=== PATIENT | female | born 1950 | race Caucasian/White ===

== ENCOUNTER 2019-03-30 06:33 | Inpatient (IN) ==
--- NOTE | 2019-02-24 16:47 | PAT Medication Instructions ---
Medication Instructions Date of Service February 24, 2019 Home Medications fluticasone propionate [Flonase Allergy Relief] 2 spray INTRANASAL QAM loratadine 10 mg PO QAM sertraline [Zoloft] 25 mg PO HS sertraline [Zoloft] 100 mg PO HS verapamil 120 mg PO QAM DO NOT take the morning of surgery loratadine 10 mg PO QAM Take morning of surgery With a small sip of water, OTHERWISE NOTHING TO EAT OR DRINK AFTER MIDNIGHT: fluticasone propionate [Flonase Allergy Relief] 2 spray INTRANASAL QAM verapamil 120 mg PO QAM Take evening before surgery sertraline [Zoloft] 25 mg PO HS sertraline [Zoloft] 100 mg PO HS Other Notes If you have any questions please call us at [phone] or [phone] or [phone] or [phone]
--- NOTE | 2019-02-25 12:43 | Anesthesiology Consultation ---
Date of Service February 25, 2019 Assessment & Plan (1) Encounter for pre-operative examination: Chart Review Chart Review: Pending: Refer to Additional Notes / Consult section (awaiting PAT testing) History Surgery Operation Date: 03/30/19 08:20 Proposed Procedures p Right Total Knee Arthroplasty - Romulo Oseguera DO Height/Weight Height: 5 ft 4 in Weight: 74 kg Allergies Allergy/AdvReac Type Severity Reaction Status Date / Time erythromycin base AdvReac Unknown GI UPSETS Verified 02/21/19 13:26 Medications Home Medications Medication Instructions Recorded Confirmed Last Taken fluticasone propionate [Flonase 2 spray INTRANASAL QA 02/21/19 02/21/19 Unknown Allergy Relief] loratadine 10 mg PO QAM 02/21/19 02/21/19 Unknown sertraline [Zoloft] 25 mg PO HS 02/21/19 02/21/19 Unknown sertraline [Zoloft] 100 mg PO HS 02/21/19 02/21/19 Unknown verapamil 120 mg PO QAM 02/21/19 02/21/19 Unknown Past Medical History Medical History Depression Environmental allergies Heart palpitations Osteoarthritis Sleep apnea Unobtainable family history due to adoption Exercise / Class Metabolic Activity II 4-5 Yardwork/Stairs/Walk up hill Past Surgical History Surgical History History of ERCP History of arthroplasty of left shoulder History of arthroplasty of right shoulder History of carpal tunnel surgery of left wrist History of carpal tunnel surgery of right wrist History of surgical removal of ganglion cyst Hx of LASIK Hx of section X2 Hx of cholecystectomy Hx of colonoscopy Hx of meniscectomy of right knee Hx of tubal ligation Social History Smoking Status: Never smoker Do You Dip or Chew Tobacco: No Hx Alcohol Use: Yes Alcohol type: beer, wine and hard liquor alcohol intake frequency: a few times a week Hx Substance Use: No Physical Exam Vital Signs Last Vital Signs Temp 97.8 F 02/25/19 12:33 Pulse 75 02/25/19 12:33 Resp 18 02/25/19 12:33 BP 115/73 02/25/19 12:33 Pulse Ox 97 02/25/19 12:33 ENMT Mouth: + dental restorations Thyromental Distance: > or= 3.5 Finger Breadths Mallampati Class: II Neck normal visual inspection Respiratory normal respiratory effort Auscultation: lungs clear to auscultation bilaterally Cardiovascular Rate/Rhythm: regular rate and regular rhythm
[2019-02-25 13:18] LABS: Basophils # (auto) 0.03 K/uL (0-0.2); Basophils % (auto) 0.5 %; Eosinophils # (auto) 0.22 K/uL (0-0.5); Eosinophils % (auto) 3.5 %; Hemoglobin 13.5 g/dL (12.0-16.0); Immature Granulocytes # (auto) 0.01 K/uL (0.00-0.02); Immature Granulocytes % (auto) 0.2 %; Lymphocytes # (auto) 1.82 K/uL (1.2-3.4); Lymphocytes % (auto) 28.8 %; Mean Corpuscular Hemoglobin 34.5 pg (25-34); Mean Corpuscular Hgb Conc 35.5 g/dL (32-36); Mean Corpuscular Volume 97.2 fL (80-100); Mean Platelet Volume 10.2 fL (7.4-10.4); Monocytes # (auto) 0.36 K/uL (0.11-0.59); Monocytes % (auto) 5.7 %; Neutrophils # (auto) 3.89 K/uL (1.4-6.5); Neutrophils % (auto) 61.3 %; Platelet Count 190 K/uL (130-400); RDW Coefficient of Variation 12.3 % (11.5-14.5); RDW Standard Deviation 43.4 fL (36.4-46.3); Red Blood Count 3.91 M/uL (4.2-5.4); White Blood Count 6.33 K/uL (4.8-10.8)
--- NOTE | 2019-02-25 13:22 | XRay Report ---
XR chest Pre-admission PA/Lat CLINICAL HISTORY: PAT preoperative evaluation COMPARISON STUDY: No previous studies for comparison. FINDINGS: The bones soft tissues and hemidiaphragms are normal. The cardiomediastinal silhouette is n ormal. The lungs are clear. The pulmonary vasculature is normal. IMPRESSION: Negative chest. The above report was generated using voice recognition software. It may contain grammatical, syntax or spelling errors. Electronically signed by: Jerad Francis M.D. 02/25/2019 1:21 PM
[2019-02-25 13:24] LABS: Appearance Urine Cloudy (Clear); Bacteria Urine Automated Negative (Negative); Bilirubin Urine Negative (Negative); Blood Urine Negative (Negative); Color Urine Yellow; Glucose Urine UA Negative (Negative); Ketones Urine Negative (Negative); Leukocyte Esterase Urine Negative (Negative); Nitrite Urine Negative (Negative); Protein Urine Negative (Negative); RBC Urine Automated 0-4 /hpf (0-4); Specific Gravity Urine 1.021 (1.000-1.030); Urobilinogen Urine Negative (Negative); pH Urine 7.5 (4.5-7.5)
[2019-02-25 13:29] LABS: Albumin Level 3.9 gm/dl (3.4-5.0); BUN Creatinine Ratio 29.3 (10-20); Calcium 8.6 mg/dl (8.5-10.1); Creatinine Clr Calc Pharmacy 56.8 ml/min; Est GFR (African American) 71.4; Est GFR (Non-African American) 61.6; Partial Thromboplastin Ratio 0.9; Partial Thromboplastin Time 23.8 Seconds (21.0-31.0); Potassium 4.2 mmol/L (3.5-5.1); Prothrombin Time 10.3 Seconds (9.0-12.0)
[2019-02-25 13:58] LABS: Estimated Average Glucose 100 mg/dl; Hemoglobin A1C 5.1 % (4.5-5.6)
--- NOTE | 2019-03-02 19:38 | History & Physical Report ---
Date of Service March 02, 2019 Date of Surgery: 03/30/19 Assessment & Plan (1) Osteoarthritis of right knee: Further care discussed with patient and at this point in time has failed conservative measures and would like to proceed with a Right total knee replacement. Plan on discharge will be home with home health physical therapy. DVT prophalaxis with TEDs, SCDs and will also place on aspirin 81 mg p.o. b.i.d. for a month postop. Patient will have follow up appointment in our office two weeks post op for staple/suture removal and re-evaluation. Patient otherwise has no other questions or concerns. History of Present Illness Chief Complaint: Right knee pain Primary Care Provider: Manny Chou is a 68 year old female who complains of right knee pain, presents for pre-op evaluation prior to a Right total knee replacement by dr Oseguera at [facility]. She complains of pain, crepitus, decreased range of motion, instability and stiffness in the right knee. she states that the symptoms have been chronic and non-traumatic. Effie states that the symptoms occur constantly and have gradually been worsening. Currently the patient states that the symptoms are moderate-severe. The pain is described as aching, sharp and throbbing. The symptoms occur continuously. The symptoms are aggravated by ascending stairs, daily activities, first steps while awake walking. Prior NSAIDs include Ibuprofen and Mobic. She has been treated with previous viscosupplementation and cortisone injections in the past without much relief. Allergies Allergy/AdvReac Type Severity Reaction Status Date / Time erythromycin base AdvReac Unknown GI UPSETS Verified 02/21/19 13:26 Home Medications Home Medications Medication Instructions Recorded Confirmed Type fluticasone propionate [Flonase 2 spray INTRANASAL QA 02/21/19 02/21/19 History Allergy Relief] loratadine 10 mg PO QAM 02/21/19 02/21/19 History sertraline [Zoloft] 25 mg PO HS 02/21/19 02/21/19 History sertraline [Zoloft] 100 mg PO HS 02/21/19 02/21/19 History verapamil 120 mg PO QAM 02/21/19 02/21/19 History Past Med/Surg History Medical History Depression Environmental allergies Heart palpitations Osteoarthritis Sleep apnea Unobtainable family history due to adoption Surgical History History of ERCP History of arthroplasty of left shoulder History of arthroplasty of right shoulder History of carpal tunnel surgery of left wrist History of carpal tunnel surgery of right wrist History of surgical removal of ganglion cyst Hx of LASIK Hx of section X2 Hx of cholecystectomy Hx of colonoscopy Hx of meniscectomy of right knee Hx of tubal ligation Social History Preferred Language: Mosotho Communication Ability: Effective Beliefs That Will Affect Care: None Current Living Situation: Alone Feels Safe at Home: Yes Smoking Status: Never smoker Do You Dip or Chew Tobacco: No ; Second Hand Exposure: No ; Hx Alcohol Use: Yes Alcohol type: beer, wine and hard liquor Hx Substance Use: No Review of Systems Review of Systems: All systems reviewed & are unremarkable except as noted in HPI & below Constitutional: no fever, no chills and no sweats Respiratory: no cough and no dyspnea Cardiovascular: no chest pain, no dyspnea and no orthopnea Gastrointestinal: no abdominal pain, no nausea and no vomiting Musculoskeletal: as per Subjective / HPI Physical Exam Physical Exam: Ht: 5ft 4 in Wt: 74kg BP: 122/72 Pulse: 70 Constitutional: WD/WN, vitals as above no acute distress Respiratory: normal respiratory effort, lungs clear to auscultation no respiratory distress, no labored breathing and does not use accessory muscles Cardiovascular: RRR, no murmur, no edema Gastrointestinal (Abdomen): normal bowel sounds, soft, nontender, no hepatosplenomegaly Musculoskeletal: Knee: + knee abnormal to inspection (Right knee: ), + effusion (+1 effusion), + surgical incision (well healed portals), + limited ROM of knee (ROM 0/3/110), + knee ROM with crepitation, + joint line tenderness (medial joint line) and + Leilani's sign positive; no deformity, no skin erythema, no ecchymosis, no valgus laxity, no varus laxity, anterior drawer test negative, Miranda's sign negative and pivot shift test negative Results & Data Laboratory Results Laboratory Results WBC 6.33 K/uL (4.8-10.8) 02/25/19 12:49 RBC 3.91 M/uL (4.2-5.4) L 02/25/19 12:49 Hgb 13.5 g/dL (12.0-16.0) 02/25/19 12:49 Hct 38.0 % (37-47) 02/25/19 12:49 MCV 97.2 fL (80-100) 02/25/19 12:49 MCH 34.5 pg (25-34) H 02/25/19 12:49 MCHC 35.5 g/dL (32-36) 02/25/19 12:49 RDW Std Deviation 43.4 fL (36.4-46.3) 02/25/19 12:49 RDW Coeff of Tereso 12.3 % (11.5-14.5) 02/25/19 12:49 Plt Count 190 K/uL (130-400) 02/25/19 12:49 MPV 10.2 fL (7.4-10.4) 02/25/19 12:49 Immature Gran % (Auto) 0.2 % 02/25/19 12:49 Neut % (Auto) 61.3 % 02/25/19 12:49 Lymph % (Auto) 28.8 % 02/25/19 12:49 [place] % (Auto) 5.7 % 02/25/19 12:49 Eos % (Auto) 3.5 % 02/25/19 12:49 Baso % (Auto) 0.5 % 02/25/19 12:49 Immature Gran # (Auto) 0.01 K/uL (0.00-0.02) 02/25/19 12:49 Neut # (Auto) 3.89 K/uL (1.4-6.5) 02/25/19 12:49 Lymph # (Auto) 1.82 K/uL (1.2-3.4) 02/25/19 12:49 [place] # (Auto) 0.36 K/uL (0.11-0.59) 02/25/19 12:49 Eos # (Auto) 0.22 K/uL (0-0.5) 02/25/19 12:49 Baso # (Auto) 0.03 K/uL (0-0.2) 02/25/19 12:49 PT 10.3 Seconds (9.0-12.0) 02/25/19 12:49 INR 1.0 (0.9-1.1) 02/25/19 12:49 APTT 23.8 Seconds (21.0-31.0) 02/25/19 12:49 PTT Ratio 0.9 02/25/19 12:49 Sodium 140 mmol/L (136-145) 02/25/19 12:49 Potassium 4.2 mmol/L (3.5-5.1) 02/25/19 12:49 Chloride 108 mmol/L (98-107) H 02/25/19 12:49 Carbon Dioxide 24 mmol/L (21-32) 02/25/19 12:49 Anion Gap 8.0 (3-11) 02/25/19 12:49 BUN 28 mg/dl (7-18) H 02/25/19 12:49 Creatinine 0.96 mg/dl (0.6-1.2) 02/25/19 12:49 Est Cr Clr Drug Dosing 56.8 ml/min 02/25/19 12:49 Est GFR ( Amer) 71.4 02/25/19 12:49 Est GFR (Non-Af Amer) 61.6 02/25/19 12:49 BUN/Creatinine Ratio 29.3 (10-20) H 02/25/19 12:49 Glucose 123 mg/dl (70-99) H 02/25/19 12:49 Estimat Average Glucose 100 mg/dl 02/25/19 12:49 Hemoglobin A1c 5.1 % (4.5-5.6) 02/25/19 12:49 Calcium 8.6 mg/dl (8.5-10.1) 02/25/19 12:49 Albumin 3.9 gm/dl (3.4-5.0) 02/25/19 12:49 Urine Color Yellow 02/25/19 Unknown Urine Appearance Cloudy (Clear) A 02/25/19 Unknown Urine pH 7.5 (4.5-7.5) 02/25/19 Unknown Ur Specific [place] 1.021 (1.000-1.030) 02/25/19 Unknown Urine Protein Negative (Negative) 02/25/19 Unknown Urine Glucose (UA) Negative (Negative) 02/25/19 Unknown Urine Ketones Negative (Negative) 02/25/19 Unknown Urine Blood Negative (Negative) 02/25/19 Unknown Urine Nitrite Negative (Negative) 02/25/19 Unknown Urine Bilirubin Negative (Negative) 02/25/19 Unknown Urine Urobilinogen Negative (Negative) 02/25/19 Unknown Ur Leukocyte Esterase Negative (Negative) 02/25/19 Unknown Urine WBC (Auto) 1-5 /hpf (0-5) 02/25/19 Unknown Urine RBC (Auto) 0-4 /hpf (0-4) 02/25/19 Unknown U Hyaline Cast (Auto) 1-5 /lpf (0-5) 02/25/19 Unknown U Epithel Cells (Auto) 10-20 /lpf (0-5) H 02/25/19 Unknown Urine Bacteria (Auto) Negative (Negative) 02/25/19 Unknown Blood Type A Positive 02/25/19 12:49 Antibody Screen NEGATIVE 02/25/19 12:49 Diagnostic Findings right knee xray from 06/25/18 showing complete loss joint space medial compartment with overall varus alignment, there is also narrowing of the lateral compartment and patellofemoral joint. there is osteophyte formation, subchondral sclerosis noted, no loose bodies, no acute bony pathology. overall impression tricompartmental degenerative changes to the right knee.
[~2019-03-30 06:33] MED LIST: ACETAMINOPHEN 500 MG TAB PO SCH; CEFAZOLIN 1000MG 1,000 MG/7.5 ML SYR IV SCH; CeleBREX 200 MG CAP PO SCH; GABAPENTIN 300 MG CAP PO SCH; LR 500ML BOLUS, THEN 15ML/HR IV SCH; ROPIVACAINE 0.5% HCL/PF 150 MG, BUPIVACAINE 0.5% MPF 30 ML, EPINEPHrine 30MG/30ML (OR U... INSTIL SCH; TRANEXAMIC ACID 1,000 MG **IV Intra-op IV SCH; TRANEXAMIC ACID 1,000 MG **IV Pre-op IV SCH; dexAMETHasone 4 MG TAB PO SCH
[2019-03-30] MEDS ORDERED: BUPIVACAINE 0.5 % 5 MG/1 ML PF 10ML VIAL ONE (06:39)
[2019-03-30] MEDS ORDERED: ROPIVACAINE 0.5% 5 MG/ML 30 ML VIAL ONE (06:39)
[2019-03-30] MEDS ORDERED: EPINEPHrine INJ 1 MG/ML AMP ONE (06:40)
[2019-03-30] MEDS ORDERED: fentaNYL citrate 100 MCG/2 ML VIAL ONE (07:52)
[2019-03-30] MEDS ORDERED: MIDAZOLAM HCL 1 MG/ML 2ML VIAL ONE (07:52)
[2019-03-30] MEDS ORDERED: ORTHO JOINT ANESTHETIC ONE (08:29)
[2019-03-30] MEDS ORDERED: BACITRACIN INJ 50,000 UNIT VIAL ONE (08:29)
--- NOTE | 2019-03-30 09:52 | History & Physical Bridge Note ---
Date of Service March 30, 2019 History & Physical Bridge Note I have examined the patient, reviewed the History & Physical and in the interval since the performance of the History & Physical I have noted the following changes of clinical significance: no changes noted
[2019-03-30] MEDS ORDERED: ePHEDrine sulfate 50 MG/ML AMP IV PRN (10:13)
[2019-03-30] MEDS ORDERED: ATROPINE SULFATE 0.1 MG/ML 10ML SYR IV PRN (10:13)
[2019-03-30] MEDS ORDERED: PHENYLEPHRINE HCL 10 MG/ML VIAL ONE (10:19)
[2019-03-30] MEDS ORDERED: PROPOFOL IV EMULSION 10 MG/ML 20 ML VIAL IV ONE ×2 (10:29→10:59)
--- NOTE | 2019-03-30 11:00 | Operative Report ---
Post Operative Report Pre & Post Diagnosis Operation Date: 03/30/19 09:20 Pre-Op Diagnosis: Right Knee Osteoarthritis Post-Op Diagnosis: Right Knee Osteoarthritis I identified the patient and participated in the time-out.: Yes Procedure Operation Date: 03/30/19 09:20 Actual Procedures p Right Total Knee Arthroplasty(Right) utilizing [employer]ph[employer] journey 2 patient matched total knee arthroplasty size 4 femur 3 tibia 11 poly-29 oval patella- Romulo Oseguera DO Surgeon Romulo Oseguera DO Director Of Content And Programming Jerad MARINELLI Estimated Blood Loss 5 Findings Consistent with Post-Op Diagnosis Patient presents with severe end-stage tricompartmental degenerative joint disease varus alignment subchondral cystic changes marginal osteophytes moderate to large effusion no response to conservative management above intraoperative findings were noted as well as eburnated bone on the medial compartment Specimens Bone cartilage Drains Medium bore Hemovac Complications none Disposition Accompanied Patient To Recovery: No Disposition: Recovery Room Indications Patient presents as a 68-year-old white female with severe end-stage DJD right knee no response to conservative management patient is failed attempted corticosteroid injection Visco supplementation relative rest activity modification bracing weight loss and presents with the above intraoperative findings. Description of Procedure After proper notification of the patientAfter proper prepping and draping of the Right lower extremity anterior midline incision was made over the region of the extensor extensor mechanism after meticulous hemostasis was obtained and maintained in subcutaneous tissues a medial parapatellar incision was made The patella was subluxed lateralward the medial lateral gutter were cleaned from any hypertrophic synovitis and scar tissue of the distal femoral block was placed and the distal femoral osteotomy cut was made subsequently the chamfers anterior and posterior osteotomy cuts were made utilizing the 4-in-1 block the tibia was subsequently subluxed anteriorward medial and ateral meniscal remnants were excised in their entirety remnants of the anterior and posterior cruciate ligaments were excised in their entirety excellent exposure of the proximal tibia was obtained the tibial osteotomy guide was placed on the proximal tibial osteotomy cut was made once again the knee was irrigated with copious amounts of sterile saline solution the patella was subsequently everted lateralward thickened scar tissue around the patella was removed the patella was subsequently cut utilizing a freehand technique and was drilled prepared for final preparation and placement of patella socially flexion-extension gaps were checked and the equal and symmetric trials were placed to the appropriate femoral and tibial trials with poly-spacer being placed for equal flexion and extension gaps and full range of motion including extension to 0 and flexion to 140 the trial components after having been taken to recovery range of motion was subsequently removed meticulous hemostasis was obtained and maintained subsequently a knee block injection of joint cocktail including ropivacaine 0.5% 150 mg. Bupivacaine 0.5% epinephrine 1-200,030 mL's toradol 30 mg dexamethasone 4 mg ketamine 10 mg clonidine 100 micrograms normal saline solution 30 mg was infiltrated into the soft tissues of the posterior knee medial lateral gutters and periosteal synovium special attention was paid to protect neurovascular structures at all times subsequently trial components having been removed the knee was irrigated with sterile saline solution. debris was removed the proximal tibia was subsequently prepared and was made ready for the placement of the tibial component tibial component was also cemented and tamped into position the femoral component was subsequently placed and cemented in the position the patellar component was subsequently cemented in position because hemostasis once again obtained and maintained wound having been thoroughly irrigated with debridement and debridement lavage was performed as well as a medial p arapatellar incision closed with #1 Vicryl in interrupted fashion subcutaneous was closed with #2 Vicryl skin was closed with skin clips. PA-C was necessary for prepping and drapping as well as wound closure of deep fascia Sub cutaneous tissue and skin and was necessary for the case. A sterile compressive dressing was placed patient was taken to recovery in stable condition of report dictated by Oumar I attest to the content of the Intraoperative Record and any orders documented therein. Any exceptions are noted below. I attest to the content of the Intraoperative Record and any orders documented therein. Any exceptions are noted below.
--- NOTE | 2019-03-30 12:16 | XRay Report ---
XR knee RT 2V routine CLINICAL HISTORY: Postoperative evaluation. COMPARISON: None FINDINGS: Alignment of the total right knee arthroplasty is anatomic. There is no fracture or unexpe cted radiopaque foreign body. There are surgical drains. IMPRESSION: Expected findings following total right knee arthroplasty. Electronically signed by: Garrick Blanton M.D. 03/30/2019 12:15 PM
--- NOTE | 2019-03-30 12:21 | Anesthesiology Progress Note ---
Date of Service March 30, 2019 Anesthesia Post Procedure Vital Signs Vital Signs: Temp Pulse Pulse Resp BP BP Pulse Ox 03/30/19 12:13 37.5 C 81 20 105/60 95 03/30/19 12:00 77 16 108/54 L 94 03/30/19 11:50 81 17 100/55 L 94 03/30/19 11:40 37.2 C 86 12 102/46 L 92 03/30/19 07:53 36.9 C 75 18 125/73 95 Transfer of Care Handoff Completed per policy Notes Mental Status: alert / awake / arousable Patient Amnestic to Procedure: Yes Nausea / Vomiting: adequately controlled Pain: adequately controlled Airway Patency, RR, SpO2: stable & adequate BP & HR: stable & adequate Hydration State: stable & adequate Neuraxial Anesthesia: was administered and sensory block is resolving Anesthetic Complications: no major complications apparent
[2019-03-30] MEDS ORDERED: SODIUM CHLORIDE 0.9% 1000ML 1,000 ML IV SCH (13:05)
[2019-03-30] MEDS ORDERED: bisacodyL 10 MG SUPP PR PRN (13:05)
[2019-03-30] MEDS ORDERED: NALOXONE HCL 0.4 MG/1 ML VIAL/CARP IV PRN (13:05)
[2019-03-30] MEDS ORDERED: ONDANSETRON INJ 2 MG/ML 2 ML VIAL IV PRN (13:05)
[2019-03-30] MEDS ORDERED: HYDROmorphone INJ 0.5 MG/0.5 ML SYR IV PRN (13:05)
[2019-03-30] MEDS ORDERED: METOCLOPRAMIDE HCL INJ 5 MG/ML 2 ML VIAL IV PRN (13:05)
[2019-03-30] MEDS ORDERED: MAGNESIUM HYDROXIDE SUSP 30 ML UDC PO PRN (13:05)
[2019-03-30] MEDS: ACETAMINOPHEN 500 MG TAB PO SCH ×2 (13:50→20:23)
[2019-03-30] MEDS: KETOROLAC TROMETHAMINE 15 MG/ML VIAL IV SCH ×2 (13:50→20:23)
[2019-03-30] MEDS: CEFAZOLIN 1000MG 1,000 MG/7.5 ML SYR IV SCH (18:08)
[2019-03-30] MEDS: ASPIRIN 81 MG ECTAB PO SCH (20:23)
[2019-03-30] MEDS: DOCUSATE SODIUM 100 MG CAP PO SCH (20:24)
[2019-03-30] MEDS ORDERED: SERTRALINE HCL 100 MG TABLET PO SCH (21:00)
[2019-03-30] MEDS ORDERED: SERTRALINE HCL 50 MG TABLET PO SCH (21:00)
[2019-03-30] MEDS ORDERED: SENNA 8.6 MG TAB PO SCH (21:00)
[2019-03-30] MEDS: OXYCODONE HCL IR 5 MG TAB (IMMEDIATE RELEASE) PO PRN (21:39)
[2019-03-31] MEDS: KETOROLAC TROMETHAMINE 15 MG/ML VIAL IV SCH ×2 (02:55→08:10)
[2019-03-31] MEDS: CEFAZOLIN 1000MG 1,000 MG/7.5 ML SYR IV SCH (02:55)
[2019-03-31 05:23] LABS: Hemoglobin 11.8 g/dL (12.0-16.0); Mean Corpuscular Hgb Conc 35.8 g/dL (32-36); Mean Corpuscular Volume 95.1 fL (80-100); Mean Platelet Volume 9.7 fL (7.4-10.4); Platelet Count 173 K/uL (130-400); RDW Coefficient of Variation 12.2 % (11.5-14.5); RDW Standard Deviation 41.8 fL (36.4-46.3); Red Blood Count 3.47 M/uL (4.2-5.4); White Blood Count 15.24 K/uL (4.8-10.8)
[2019-03-31] MEDS: ACETAMINOPHEN 500 MG TAB PO SCH (05:36)
[2019-03-31 05:57] LABS: Calcium 8.5 mg/dl (8.5-10.1); Creatinine Clr Calc Pharmacy 60.1 ml/min; Est GFR (African American) 77.2; Est GFR (Non-African American) 66.6; Potassium 4.6 mmol/L (3.5-5.1)
[2019-03-31] MEDS: DOCUSATE SODIUM 100 MG CAP PO SCH (08:12)
[2019-03-31] MEDS: ASPIRIN 81 MG ECTAB PO SCH (08:12)
--- NOTE | 2019-03-31 08:34 | Anesthesiology Progress Note ---
Date of Service March 31, 2019 Anesthesia Post Procedure Vital Signs Vital Signs: Temp Pulse Pulse Resp BP Pulse Ox 03/31/19 07:47 36.9 C 104 H 16 117/73 97 03/31/19 03:10 36.8 C 75 16 111/66 97 03/30/19 15:45 36.8 C 88 17 116/60 97 03/30/19 14:44 83 18 95/55 L 96 03/30/19 13:45 89 18 108/71 93 03/30/19 13:20 36.4 C L 74 15 116/64 94 03/30/19 12:50 36.8 C 80 15 98/47 L 98 03/30/19 12:42 37.5 C 77 15 103/55 L 97 03/30/19 12:30 37.5 C 74 18 98/58 L 95 03/30/19 12:20 37.5 C 70 20 95/51 L 94 03/30/19 12:10 37.5 C 81 20 105/60 95 03/30/19 12:00 77 16 108/54 L 94 03/30/19 11:50 81 17 100/55 L 94 03/30/19 11:40 37.2 C 86 12 102/46 L 92 Notes Mental Status: alert / awake / arousable and participated in evaluation Patient Amnestic to Procedure: Yes Nausea / Vomiting: adequately controlled Pain: adequately controlled Airway Patency, RR, SpO2: stable & adequate BP & HR: stable & adequate Hydration State: stable & adequate Neuraxial Anesthesia: was administered and sensory block resolved Anesthetic Complications: no major complications apparent and Pt Satisfied with anesthetic care
[2019-03-31] MEDS ORDERED: MULTIVITAMIN TAB PO SCH (09:00)
[2019-03-31] MEDS ORDERED: LORATADINE 10 MG TAB PO SCH (09:00)
[2019-03-31] MEDS ORDERED: VERAPAMIL HCL 40 MG TAB PO SCH (09:00)
[2019-03-31] MEDS ORDERED: FLUTICASONE PROPIONATE NA SPR 16 GM BTL NAE SCH (09:00)
--- NOTE | 2019-03-31 09:42 | Orthopedic Progress Note ---
Date of Service March 31, 2019 Assessment & Plan (1) Osteoarthritis of right knee: POD#1 Right TKA -Pain management -PT/OT -DVT prophylaxis-ASA 81mg BID, SCDs, TEDs -D/C planning-planning on discharge today with plans on outpatient PT Subjective Patient is POD#1 right TKA. Doing well, having minimal pain. Denies chest pain, sob, dizziness, n/v/d. Would like to go home today. Review of Systems Review of Systems: All systems reviewed & are unremarkable except as noted in HPI & below Physical Exam Physical Exam: Patient sitting in bedside chair upon arrival. Right knee dressing is c/d/i, hemovac in place. No calf tenderness. Toes are mobile. Good DF. Distally sensation and n/v status intact. Constitutional: well developed and well nourished; no acute distress Results & Data Vital Signs (Past 12 Hours) Vital Signs Temp Pulse Resp BP Pulse Ox 03/31/19 07:47 36.9 C 104 H 16 117/73 97 03/31/19 03:10 36.8 C 75 16 111/66 97 Laboratory Results Lab Results 02/25/19 02/25/19 02/25/19 Range/Units 12:49 12:49 12:49 WBC 6.33 (4.8-10.8) K/uL RBC 3.91 L (4.2-5.4) M/uL Hgb 13.5 (12.0-16.0) g/dL Hct 38.0 (37-47) % MCV 97.2 (80-100) fL MCH 34.5 H (25-34) pg MCHC 35.5 (32-36) g/dL RDW Std Deviation 43.4 (36.4-46.3) fL RDW Coeff of Tereso 12.3 (11.5-14.5) % Plt Count 190 (130-400) K/uL MPV 10.2 (7.4-10.4) fL Immature Gran % (Auto) 0.2 % Neut % (Auto) 61.3 % Lymph % (Auto) 28.8 % [place] % (Auto) 5.7 % Eos % (Auto) 3.5 % Baso % (Auto) 0.5 % Immature Gran # (Auto) 0.01 (0.00-0.02) K/uL Neut # (Auto) 3.89 (1.4-6.5) K/uL Lymph # (Auto) 1.82 (1.2-3.4) K/uL [place] # (Auto) 0.36 (0.11-0.59) K/uL Eos # (Auto) 0.22 (0-0.5) K/uL Baso # (Auto) 0.03 (0-0.2) K/uL PT 10.3 (9.0-12.0) Seconds INR 1.0 (0.9-1.1) APTT 23.8 (21.0-31.0) Seconds PTT Ratio 0.9 Sodium 140 (136-145) mmol/L Potassium 4.2 (3.5-5.1) mmol/L Chloride 108 H (98-107) mmol/L Carbon Dioxide 24 (21-32) mmol/L Anion Gap 8.0 (3-11) BUN 28 H (7-18) mg/dl Creatinine 0.96 (0.6-1.2) mg/dl Est Cr Clr Drug Dosing 56.8 ml/min Est GFR ( Amer) 71.4 Est GFR (Non-Af Amer) 61.6 BUN/Creatinine Ratio 29.3 H (10-20) Glucose 123 H (70-99) mg/dl Estimat Average Glucose mg/dl Hemoglobin A1c (4.5-5.6) % Calcium 8.6 (8.5-10.1) mg/dl Albumin 3.9 (3.4-5.0) gm/dl Urine Color Urine Appearance (Clear) Urine pH (4.5-7.5) Ur Specific Wheel[place] (1.000-1.030) Urine Protein (Negative) Urine Glucose (UA) (Negative) Urine Ketones (Negative) Urine Blood (Negative) Urine Nitrite (Negative) Urine Bilirubin (Negative) Urine Urobilinogen (Negative) Ur Leukocyte Esterase (Negative) Urine WBC (Auto) (0-5) /hpf Urine RBC (Auto) (0-4) /hpf U Hyaline Cast (Auto) (0-5) /lpf U Epithel Cells (Auto) (0-5) /lpf Urine Bacteria (Auto) (Negative) Blood Type Antibody Screen 02/25/19 02/25/19 02/25/19 Range/Units 12:49 12:49 Unknown WBC (4.8-10.8) K/uL RBC (4.2-5.4) M/uL Hgb (12.0-16.0) g/dL Hct (37-47) % MCV (80-100) fL MCH (25-34) pg MCHC (32-36) g/dL RDW Std Deviation (36.4-46.3) fL RDW Coeff of Tereso (11.5-14.5) % Plt Count (130-400) K/uL MPV (7.4-10.4) fL Immature Gran % (Auto) % Neut % (Auto) % Lymph % (Auto) % [place] % (Auto) % Eos % (Auto) % Baso % (Auto) % Immature Gran # (Auto) (0.00-0.02) K/uL Neut # (Auto) (1.4-6.5) K/uL Lymph # (Auto) (1.2-3.4) K/uL [place] # (Auto) (0.11-0.59) K/uL Eos # (Auto) (0-0.5) K/uL Baso # (Auto) (0-0.2) K/uL PT (9.0-12.0) Seconds INR (0.9-1.1) APTT (21.0-31.0) Seconds PTT Ratio Sodium (136-145) mmol/L Potassium (3.5-5.1) mmol/L Chloride (98-107) mmol/L Carbon Dioxide (21-32) mmol/L Anion Gap (3-11) BUN (7-18) mg/dl Creatinine (0.6-1.2) mg/dl Est Cr Clr Drug Dosing ml/min Est GFR ( Amer) Est GFR (Non-Af Amer) BUN/Creatinine Ratio (10-20) Glucose (70-99) mg/dl Estimat Average Glucose 100 mg/dl Hemoglobin A1c 5.1 (4.5-5.6) % Calcium (8.5-10.1) mg/dl Albumin (3.4-5.0) gm/dl Urine Color Yellow Urine Appearance Cloudy A (Clear) Urine pH 7.5 (4.5-7.5) Ur Specific [place] 1.021 (1.000-1.030) Urine Protein Negative (Negative) Urine Glucose (UA) Negative (Negative) Urine Ketones Negative (Negative) Urine Blood Negative (Negative) Urine Nitrite Negative (Negative) Urine Bilirubin Negative (Negative) Urine Urobilinogen Negative (Negative) Ur Leukocyte Esterase Negative (Negative) Urine WBC (Auto) 1-5 (0-5) /hpf Urine RBC (Auto) 0-4 (0-4) /hpf U Hyaline Cast (Auto) 1-5 (0-5) /lpf U Epithel Cells (Auto) 10-20 H (0-5) /lpf Urine Bacteria (Auto) Negative (Negative) Blood Type A Positive Antibody Screen NEGATIVE 03/31/19 03/31/19 Range/Units 05:12 05:12 WBC 15.24 H (4.8-10.8) K/uL RBC 3.47 L (4.2-5.4) M/uL Hgb 11.8 L (12.0-16.0) g/dL Hct 33.0 L (37-47) % MCV 95.1 (80-100) fL MCH 34.0 (25-34) pg MCHC 35.8 (32-36) g/dL RDW Std Deviation 41.8 (36.4-46.3) fL RDW Coeff of Tereso 12.2 (11.5-14.5) % Plt Count 173 (130-400) K/uL MPV 9.7 (7.4-10.4) fL Immature Gran % (Auto) % Neut % (Auto) % Lymph % (Auto) % [place] % (Auto) % Eos % (Auto) % Baso % (Auto) % Immature Gran # (Auto) (0.00-0.02) K/uL Neut # (Auto) (1.4-6.5) K/uL Lymph # (Auto) (1.2-3.4) K/uL [place] # (Auto) (0.11-0.59) K/uL Eos # (Auto) (0-0.5) K/uL Baso # (Auto) (0-0.2) K/uL PT (9.0-12.0) Seconds INR (0.9-1.1) APTT (21.0-31.0) Seconds PTT Ratio Sodium 138 (136-145) mmol/L Potassium 4.6 (3.5-5.1) mmol/L Chloride 108 H (98-107) mmol/L Carbon Dioxide 23 (21-32) mmol/L Anion Gap 7.0 (3-11) BUN 16 (7-18) mg/dl Creatinine 0.90 (0.6-1.2) mg/dl Est Cr Clr Drug Dosing 60.1 ml/min Est GFR ( Amer) 77.2 Est GFR (Non-Af Amer) 66.6 BUN/Creatinine Ratio 18.0 (10-20) Glucose 129 H (70-99) mg/dl Estimat Average Glucose mg/dl Hemoglobin A1c (4.5-5.6) % Calcium 8.5 (8.5-10.1) mg/dl Albumin (3.4-5.0) gm/dl Urine Color Urine Appearance (Clear) Urine pH (4.5-7.5) Ur Specific [place] (1.000-1.030) Urine Protein (Negative) Urine Glucose (UA) (Negative) Urine Ketones (Negative) Urine Blood (Negative) Urine Nitrite (Negative) Urine Bilirubin (Negative) Urine Urobilinogen (Negative) Ur Leukocyte Esterase (Negative) Urine WBC (Auto) (0-5) /hpf Urine RBC (Auto) (0-4) /hpf U Hyaline Cast (Auto) (0-5) /lpf U Epithel Cells (Auto) (0-5) /lpf Urine Bacteria (Auto) (Negative) Blood Type Antibody Screen (1) Osteoarthritis of right knee Osteoarthritis type: primary Qualified Code(s): M17.11 - Unilateral primary osteoarthritis, right knee
[2019-03-31] MEDS: OXYCODONE HCL IR 5 MG TAB (IMMEDIATE RELEASE) PO PRN (12:08)
[2019-03-31] MEDS ORDERED: CeleBREX 200 MG CAP PO SCH (13:00)
--- NOTE | 2019-04-04 17:25 | Discharge Summary ---
Date of Service date of discharge: March 31, 2019 date of admission: 03/30/19 Admission HPI Per Admitting Provider Effie is a 68 year old female who complains of right knee pain, presents for pre-op evaluation prior to a Right total knee replacement by dr Oseguera at [facility]. She complains of pain, crepitus, decreased range of motion, instability and stiffness in the right knee. she states that the symptoms have been chronic and non-traumatic. Effie states that the symptoms occur constantly and have gradually been worsening. Currently the patient states that the symptoms are moderate-severe. The pain is described as aching, sharp and throbbing. The symptoms occur continuously. The symptoms are aggravated by ascending stairs, daily activities, first steps while awake walking. Prior NSAIDs include Ibuprofen and Mobic. She has been treated with previous viscosupplementation and cortisone injections in the past without much relief. Principal Diagnosis right knee osteoarthritis Discharge Exam Vital Signs Temp 36.9 C 03/31/19 11:20 Pulse 104 H 03/31/19 11:20 Resp 16 03/31/19 11:20 BP 117/73 03/31/19 11:20 Pulse Ox 97 03/31/19 11:20 Constitutional WD/WN, vitals as above no acute distress Musculoskeletal right knee: NVDI, calf SNT, negative swati sign. DP palpable, able to wiggle toes/ankle movement without difficulty. Incision clean dry and intact. expected post-operative bruising noted. Discharge Data Allergies Allergy/AdvReac Type Severity Reaction Status Date / Time erythromycin base AdvReac Unknown GI UPSETS Verified 03/30/19 07:40 Consultations 03/30/19 13:05 Consult Case Management - Discharge Planning Routine Procedures Performed Operation Date: 03/30/19 09:20 Actual Procedures p Right Total Knee Arthroplasty(Right) - Romulo Oseguera, Ordered Studies 03/30/19 05:00 US - OR guided needle placemen Routine Hospital Course (1) Osteoarthritis of right knee: POD#1 Right TKA -Pain management -PT/OT -DVT prophylaxis-ASA 81mg BID, SCDs, TEDs -D/C planning-planning on discharge today with plans on outpatient PT Total Time Total Time Spent Total Time Spent (In Minutes): 20 Total Time Includes: Examination of the Patient, Discharge Planning and Medication Reconciliation Discharge Plan Discharge Items Patient Disposition: Home - Self-Care Reason For Visit: Right Knee Osteoarthritis Discharge Diagnosis: Right knee osteoarthritis Activity: Per Instructions section Non-emergency contact: Surgeon Call non-emergency contact if: you have any medication questions, your pain is not controlled, your pain is concerning for you, you have a fever, your temperature is above 101, your wound has increased redness and your wound has increased drainage Follow-up/Referrals: Manny Velazco [Primary Care Provider] - Diet: Regular Addtl Attending Provider Instructions: ACTIVITY RECOMMENDATIONS: SELF CARE INSTRUCTIONS AFTER TOTAL KNEE REPLACEMENT A. You may need to continue a physical therapy program after discharge from the hospital. There are several options available to you. Your doctor will assist you in selecting the best one for you. 1. An out-patient facility 2 to 3 times a week for therapy or home therapy. 2. Continue working on all exercises taught to you in the hospital. Your goals should be to increase bending of your knee to 90 degrees and beyond and to fully straighten your knee. B. You may progress at your own pace from walking with a walker or crutches to a cane; then to no assistive devices. C. Make walking a part of your daily routine. Be up as much as comfortable with rest periods throughout the day. Rest with leg elevation is very important. Use the ice wrap frequently for the first 3-4 weeks. D. There are no restrictions on activities. You may ride in a car, shop, participate in concrete form setter and finisher and all social activities. E. Wear the long elastic stockings (VALERIE hose) 20 hours a day for 2 weeks after surgery. They can be removed several times a day for laundering and for a bath. F. You may shower, no tub baths until cleared by your doctor. SPECIAL CARE INSTRUCTIONS: VERY IMPORTANT TO READ AND REVIEW A. There are a few signs you need to watch for after you are home. Call [facility] if you notice any of the followin. Increased severe knee pain. Some pain is expected especially when you exercise. 2. Increased swelling in your leg or knee; pain or swelling of the calf muscle in either lower leg. 3. Any fluid drainage from the incision. 4. Shortness of breath or chest pain. B. Please call [facility] at if you have any concerns or questions about your operation or recovery. The doctor or his nurse will return your call promptly. C. You must take antibiotics before dental work, bladder, bowel or other surgery. Your doctor will provide you with a permanent care to carry describing this precaution. IMPORTANT: * REMEMBER TO TAKE ASPIRIN, 81 MG, TWICE DAILY FOR 4 WEEKS UNLESS OTHERWISE DIRECTED. THIS IS YOUR BLOOD THINNER. * HIGH RISK PATIENTS MAY BE PRESCRIBED A STRONGER BLOOD THINNER. THIS WILL BE PROVIDED AT DISCHARGE. * CALL IF INCREASED PAIN, REDNESS, DRAINAGE OR FEVER GREATER THAT 101. * WEAR VALERIE HOSE 20 HOURS PER DAY FOR 2 WEEKS. This is a mesh tape dressing that is covered with glue. It should remain in place until the incision is properly healed, usually 10-14 days. This dressing is designed to naturally slough off. You may trim the excess mesh tape as it peels off. Incision may be briefly wet in a shower. Dry immediately by blotting with a clean, dry towel. Do not bath or swim until instructed by your doctor. Do not scratch, rub, or pick at the dressing. Do not apply any topical ointments or lotions until dressing is completely removed and/or instructed by your doctor. There may be a small piece of suture material at one end of your incision. Do not pull or trim this. If it is bothersome or catching on clothing, you may cover it with a band-aid. IF INCISION IS LEAKING THROUGH DRESSING, CALL THE OFFICE . FOLLOW UP VISIT: If appointment is not already scheduled: Please call [facility] to make a follow-up appointment for 2 weeks after your surgery at . Pending Studies at Discharge: No Stand-Alone Forms: My [facility] Medications and DC Order Prescriptions: New celecoxib [Celebrex] 200 mg Capsule 200 mg PO BID Qty: 60 RF: 0 aspirin [Ecotrin Low Strength] 81 mg Tablet,Delayed Release (Dr/Ec) 81 mg PO BID Qty: 60 RF: 0 acetaminophen [Tylenol Extra Strength] 500 mg Tablet 1,000 mg PO Q8 Qty: 60 RF: 0 oxycodone 5 mg Tablet 5 - 10 mg PO .Q6-8H MDD 6 PRN (Reason: pain) Qty: 30 RF: 0 cefadroxil 500 mg capsule 500 mg PO BID Qty: 28 RF: 1 Continued sertraline [Zoloft] 100 mg Tablet 100 mg PO HS RF: 0 verapamil 120 mg Tablet 120 mg PO QAM RF: 0 sertraline [Zoloft] 25 mg Tablet 25 mg PO HS RF: 0 fluticasone propionate [Flonase Allergy Relief] 50 mcg/actuation [place],Suspension 2 spray INTRANASAL QAM RF: 0 loratadine 10 mg Capsule 10 mg PO QAM RF: 0 Discharge Orders: Discharge Order (Routine); Ordered 03/31/19 Ordered By: Ramirez Mott Admission Data Admit Date/Time: 03/30/19 11:50 Attending Provider: Romulo Oseguera Admit Provider: Romulo Oseguera Primary Care Provider: Manny Velazco Other Interventions: Discharge Summary Assessment (RN) Last Done: 03/31/19 11:20 DC Date/Time DO NOT enter until pt leaves facility: 03/31/19 13:13
== END 2019-03-31 13:13 | disposition home or self-care (01) | DRG 470 ==
LOC: ASU 06:33 → 3E 11:50